=== PATIENT | male | born 1985 | race African-American/Black ===

== ENCOUNTER 2018-02-12 06:59 | Emergency (ER) | payer SELFPAY ==
[~2018-02-12] VITALS: Ht 170.2 cm; Wt 79.0 kg
[2018-02-12] MEDS ORDERED: BACITRACIN ZINC OINT UDPKT TOP ONE (08:30)
[2018-02-12] MEDS ORDERED: LIDOCAINE HCL/PF 1% 10 MG/ML 5ML VIAL IJ ONE (08:30)
[2018-02-12 10:28] VITALS: BP 117/71
== END 2018-02-12 10:30 | disposition home or self-care (01) ==
LOC: ER 07:16
DX: L03.011 Cellulitis of right finger (principal); F12.10 Cannabis abuse, uncomplicated
CPT/HCPCS: 10060; 99283; J3490; Z7610

== ENCOUNTER 2018-02-16 14:11 | Emergency (ER) | payer SELFPAY ==
[~2018-02-16] VITALS: Ht 167.6 cm; Wt 76.0 kg
[2018-02-16 14:14] VITALS: BP 118/72
== END 2018-02-16 15:39 | disposition home or self-care (01) ==
LOC: ER 14:11
DX: Z48.01 Encounter for change or removal of surgical wound dressing (principal); J45.909 Unspecified asthma, uncomplicated; F12.10 Cannabis abuse, uncomplicated
CPT/HCPCS: 99281

== ENCOUNTER 2018-12-07 00:03 | Emergency (ER) | payer MEDICAID ==
[~2018-12-07] VITALS: Ht 170.2 cm; Wt 80.0 kg
[2018-12-07] MEDS ORDERED: MAGNESIUM/ALUMINUM HYDROXIDE/SIMETHICONE 30ML UDC PO STA (03:02)
[2018-12-07] MEDS ORDERED: SODIUM CHLORIDE 0.9% 1,000 ML IV ONE (03:02)
[2018-12-07] MEDS ORDERED: ONDANSETRON HCL 4MG/2ML INJ IV STA (03:02)
[2018-12-07] MEDS ORDERED: FAMOTIDINE 20MG/2ML VIAL IV STA (03:02)
[2018-12-07 03:30] LABS: BASOPHILS % 0.3 % (0.0-2.0); EOSINOPHILS % 1.8 % (0.0-5.0); HEMATOCRIT. 39.5 % (42.0-52.0); HEMOGLOBIN. 12.9 g/dL (14.0-18.0); LYMPHOCYTES % 35.5 % (20.0-50.0); MEAN CORPUSCULAR HEMOGLOBIN 27.5 pg (28.0-32.0); MEAN CORPUSCULAR VOLUME 84.1 fL (80.0-94.0); MEAN PLATELET VOLUME 7.9 fl (7.4-10.4); MONOCYTES % 6.7 % (2.0-8.0); NEUTROPHILS % 55.7 % (40.0-76.0); PLATELET 242 x1000/uL (130-400)
[2018-12-07 03:36] LABS: CHLORIDE 104 mEq/L (98-107)
[2018-12-07 05:29] VITALS: BP 112/70
== END 2018-12-07 05:33 | disposition home or self-care (01) ==
LOC: ER 00:03
DX: T62.91XA Toxic effect of unspecified noxious substance eaten as food, accidental (unintentional), initial encounter (principal); J45.909 Unspecified asthma, uncomplicated; F12.10 Cannabis abuse, uncomplicated; R19.7 Diarrhea, unspecified; R11.10 Vomiting, unspecified; Y92.89 Other specified places as the place of occurrence of the external cause
CPT/HCPCS: 36415; 80053; 83690; 85025; 96374; 96375; 99283; J2405; J3490; J7030

== ENCOUNTER 2019-01-15 09:00 | Emergency (ER) | payer MEDICAID ==
[~2019-01-15] VITALS: Ht 167.6 cm; Wt 80.0 kg
[2019-01-15 09:45] VITALS: BP 154/76
[2019-01-15 10:37] LABS: CHLORIDE 107 mEq/L (98-107)
== END 2019-01-15 11:24 | disposition home or self-care (01) ==
LOC: ER 09:19
DX: B35.1 Tinea unguium (principal); B35.3 Tinea pedis
CPT/HCPCS: 36415; 99283

== ENCOUNTER 2019-03-27 12:59 | Emergency (ER) | payer MEDICAID ==
[~2019-03-27] VITALS: Ht 170.2 cm; Wt 82.0 kg
[2019-03-27 16:00] VITALS: BP 131/71
[2019-03-27] MEDS ORDERED: IBUPROFEN 600MG TABLET PO ONE (16:00)
== END 2019-03-27 16:16 | disposition home or self-care (01) ==
LOC: ER 13:11
DX: S90.861A Insect bite (nonvenomous), right foot, initial encounter (principal); L03.115 Cellulitis of right lower limb; F12.10 Cannabis abuse, uncomplicated; J45.909 Unspecified asthma, uncomplicated; W57.XXXA Bitten or stung by nonvenomous insect and other nonvenomous arthropods, initial encounter; Y93.89 Activity, other specified; Y92.89 Other specified places as the place of occurrence of the external cause; Y99.8 Other external cause status
CPT/HCPCS: 99283

== ENCOUNTER 2019-03-29 21:16 | Emergency (ER) | payer MEDICAID ==
[~2019-03-29] VITALS: Ht 170.2 cm; Wt 86.0 kg
[2019-03-29] MEDS ORDERED: SODIUM CHLORIDE 0.9% 1,000 ML IV ONE (22:16)
[2019-03-29] MEDS ORDERED: KETOROLAC 30MG/ML VIAL IV STA (22:16)
[2019-03-29] MEDS ORDERED: MORPHINE SULFATE 4 MG/ML CPJ (NOT FOR IM USE) IV STA (22:16)
[2019-03-29] MEDS ORDERED: ONDANSETRON HCL 4MG/2ML INJ IV STA (22:16)
[2019-03-29] MEDS ORDERED: VANCOMYCIN 1 G PREMIX 200 ML IV ONE (22:30)
[2019-03-29] MEDS ORDERED: BACITRACIN ZINC OINT UDPKT TOP ONE (22:30)
[2019-03-29] MEDS ORDERED: LIDOCAINE 1%/EPI 1:100,000 10 ML VIAL IJ ONE (22:30)
[2019-03-29] MEDS ORDERED: PIPERACILLIN/TAZ 3.375G PREMIX 50 ML IV ONE (22:30)
[2019-03-29 22:45] LABS: CHLORIDE 108 mEq/L (98-107)
[2019-03-29] MEDS ORDERED: BACITRACIN 15GM TUBE TOP NR (22:45)
[2019-03-29] MEDS ORDERED: LIDOCAINE HCL/EPINEPHRINE 1%-EPI 1:100,000 20 ML VIAL INFIL NR (22:45)
[2019-03-29 22:48] LABS: BASOPHILS % 0.3 % (0.0-2.0); EOSINOPHILS % 0.9 % (0.0-5.0); HEMATOCRIT. 39.6 % (42.0-52.0); LYMPHOCYTES % 25.4 % (20.0-50.0); MEAN CORPUSCULAR HEMOGLOBIN 27.4 pg (28.0-32.0); MEAN CORPUSCULAR VOLUME 83.5 fL (80.0-94.0); MEAN PLATELET VOLUME 8.1 fl (7.4-10.4); MONOCYTES % 8.7 % (2.0-8.0); NEUTROPHILS % 64.7 % (40.0-76.0); PLATELET 265 x1000/uL (130-400); RED BLOOD CELL COUNT 4.74 mill/uL (4.7-6.1); RED CELL DISTRIBUTION WIDTH 13.9 % (11.6-14.6)
[2019-03-29] MEDS ORDERED: MORPHINE SULFATE 4 MG/ML CPJ (NOT FOR IM USE) IV ONE (23:53)
[2019-03-30] MEDS ORDERED: HYDROCODONE/ACETAMINOPHEN 5/325MG TABLET PO ONE (00:15)
[2019-03-30] MEDS ORDERED: MORPHINE SULFATE 4 MG/ML CPJ (NOT FOR IM USE) IV ONE (00:15)
[2019-03-30] MEDS ORDERED: SULFAMETHOXAZOLE/TRIMETHOPRIM 800/160MG TABLET PO ONE (00:15)
[2019-03-30 01:07] VITALS: BP 130/75
== END 2019-03-30 01:14 | disposition home or self-care (01) ==
LOC: ER 21:16
DX: L02.611 Cutaneous abscess of right foot (principal); L03.115 Cellulitis of right lower limb; F17.210 Nicotine dependence, cigarettes, uncomplicated; Z71.6 Tobacco abuse counseling
CPT/HCPCS: 10060; 36415; 80053; 85025; 96365; 96367; 96375; 99283; 99406; A4217; J1885; J2270; J2405; J2543; J3370; J3490; J7030; Z7610

== ENCOUNTER 2019-03-31 12:10 | Emergency (ER) | payer MEDICAID ==
[~2019-03-31] VITALS: Ht 170.2 cm; Wt 82.0 kg
[2019-03-31 12:22] VITALS: BP 131/76
== END 2019-03-31 13:47 | disposition home or self-care (01) ==
LOC: ER 12:10
DX: Z48.00 Encounter for change or removal of nonsurgical wound dressing (principal)
CPT/HCPCS: 99282

== ENCOUNTER 2019-04-05 03:35 | Emergency (ER) | payer MEDICAID ==
[~2019-04-05] VITALS: Ht 170.2 cm; Wt 82.0 kg
[2019-04-05] MEDS ORDERED: FAMOTIDINE 20MG/2ML VIAL IV ONE (05:30)
[2019-04-05] MEDS ORDERED: ONDANSETRON HCL 4MG/2ML INJ IV ONE (05:30)
[2019-04-05] MEDS ORDERED: SODIUM CHLORIDE 0.9% 1,000 ML IV ONE ×2 (05:30→06:45)
[2019-04-05 05:34] LABS: BASOPHILS % 0.1 % (0.0-2.0); EOSINOPHILS % 0.2 % (0.0-5.0); HEMATOCRIT. 40.3 % (42.0-52.0); LYMPHOCYTES % 9.2 % (20.0-50.0); MEAN CORPUSCULAR HEMOGLOBIN 26.8 pg (28.0-32.0); MEAN CORPUSCULAR VOLUME 83.2 fL (80.0-94.0); MEAN PLATELET VOLUME 7.9 fl (7.4-10.4); MONOCYTES % 5.5 % (2.0-8.0); PLATELET 290 x1000/uL (130-400); RED BLOOD CELL COUNT 4.84 mill/uL (4.7-6.1); RED CELL DISTRIBUTION WIDTH 13.7 % (11.6-14.6)
[2019-04-05 05:37] LABS: CHLORIDE 103 mEq/L (98-107); PROTHROMBIN TIME 10.8 sec (9.6-11.0)
[2019-04-05 07:50] LABS: CLARITY URINE CLOUDY (CLEAR); COLOR URINE YELLOW (YELLOW); KETONES URINE NEGATIVE (NEGATIVE); LEUKOCYTE ESTERASE URINE NEGATIVE (NEGATIVE); NITRITE URINE NEGATIVE (NEGATIVE); OCCULT BLOOD URINE TRACE (NEGATIVE); PH URINE 7.5 (4.5-8.0); PROTEIN URINE NEGATIVE (NEGATIVE); SPECIFIC GRAVITY URINE 1.014 (1.005-1.030)
[2019-04-05] MEDS ORDERED: IOHEXOL-300 100 ML BOTTLE ONE (09:11)
[2019-04-05 11:51] VITALS: BP 133/72
== END 2019-04-05 11:51 | disposition home or self-care (01) ==
LOC: ER 03:35
DX: R10.9 Unspecified abdominal pain (principal); R11.2 Nausea with vomiting, unspecified; F12.10 Cannabis abuse, uncomplicated
CPT/HCPCS: 36415; 74177; 80053; 81003; 83690; 85025; 85610; 87086; 96361; 96374; 96375; 99284; J2405; J3490; J7030; Q9967; Z7610

== ENCOUNTER 2019-07-23 23:25 | Emergency (ER) | payer SELFPAY ==
[~2019-07-23] VITALS: Ht 170.2 cm; Wt 82.0 kg
[2019-07-24 03:00] VITALS: BP 115/70
== END 2019-07-24 04:09 | disposition left against medical advice (07) ==
LOC: ER 23:25
DX: M79.671 Pain in right foot (principal); Z53.21 Procedure and treatment not carried out due to patient leaving prior to being seen by health care provider

== ENCOUNTER 2019-07-24 07:32 | Emergency (ER) | payer SELFPAY ==
[~2019-07-24] VITALS: Ht 170.2 cm; Wt 82.0 kg
[2019-07-24 07:38] VITALS: BP 125/69
[2019-07-24] MEDS ORDERED: ACETAMINOPHEN 325MG TABLET PO ONE (08:15)
== END 2019-07-24 09:00 | disposition home or self-care (01) ==
LOC: ER 07:32
DX: S90.464A Insect bite (nonvenomous), right lesser toe(s), initial encounter (principal); M79.674 Pain in right toe(s); W57.XXXA Bitten or stung by nonvenomous insect and other nonvenomous arthropods, initial encounter; Y93.89 Activity, other specified; Y92.89 Other specified places as the place of occurrence of the external cause; Y99.8 Other external cause status; F12.10 Cannabis abuse, uncomplicated
CPT/HCPCS: 99283

== ENCOUNTER 2020-08-30 14:34 | Emergency (ER) | payer MEDICAID ==
[~2020-08-30] VITALS: Ht 170.2 cm; Wt 87.0 kg
[2020-08-30] MEDS ORDERED: ONDANSETRON HCL 4MG/2ML INJ IV STA (15:20)
[2020-08-30] MEDS ORDERED: KETOROLAC 30MG/ML VIAL IV STA (15:20)
[2020-08-30] MEDS ORDERED: SODIUM CHLORIDE 0.9% 1,000 ML IV ONE (15:30)
[2020-08-30 15:44] LABS: BASOPHILS % 0.2 % (0.0-2.0); EOSINOPHILS % 0.7 % (0.0-5.0); HEMATOCRIT. 42.7 % (42.0-52.0); HEMOGLOBIN. 13.8 g/dL (14.0-18.0); LYMPHOCYTES % 17.3 % (20.0-50.0); MEAN CORPUSCULAR HEMOGLOBIN 27.3 pg (28.0-32.0); MEAN CORPUSCULAR VOLUME 84.1 fL (80.0-94.0); MEAN PLATELET VOLUME 8.3 fl (7.4-10.4); MONOCYTES % 6.1 % (2.0-8.0); NEUTROPHILS % 75.7 % (40.0-76.0); PLATELET 246 x1000/uL (130-400); RED BLOOD CELL COUNT 5.07 mill/uL (4.7-6.1)
[2020-08-30 15:51] LABS: CHLORIDE 107 mEq/L (98-107)
[2020-08-30 17:59] LABS: CLARITY URINE CLEAR (CLEAR); COLOR URINE YELLOW (YELLOW); KETONES URINE NEGATIVE (NEGATIVE); LEUKOCYTE ESTERASE URINE NEGATIVE (NEGATIVE); NITRITE URINE NEGATIVE (NEGATIVE); OCCULT BLOOD URINE 1+ (NEGATIVE); PROTEIN URINE NEGATIVE (NEGATIVE); SPECIFIC GRAVITY URINE 1.024 (1.005-1.030); UROBILINOGEN URINE 0.2 E.U./dL (0.2-1.0)
[2020-08-30] MEDS ORDERED: ONDA4TAB11 PO (18:05)
[2020-08-30] MEDS ORDERED: FAMO-262 PO (18:05)
[2020-08-30 18:42] VITALS: BP 140/80
[2020-08-30] MEDS ORDERED: IOHEXOL-350 100 ML BOTTLE ONE (19:34)
== END 2020-08-30 18:44 | disposition home or self-care (01) ==
LOC: ER 14:34
DX: K52.9 Noninfective gastroenteritis and colitis, unspecified (principal); F12.10 Cannabis abuse, uncomplicated
CPT/HCPCS: 36415; 74177; 80053; 81003; 83690; 85025; 93005; 96361; 96374; 96375; 99285; J1885; J2405; J7030; Q9967

== ENCOUNTER 2021-08-03 13:54 | Emergency (ER) | payer MEDICAID ==
[~2021-08-03] VITALS: Ht 170.2 cm; Wt 81.0 kg
[~2021-08-03 13:54] MED LIST: FAMO-262 PO; ONDA4TAB11 PO
[2021-08-03 14:00] VITALS: BP 140/88
== END 2021-08-03 15:31 | disposition home or self-care (01) ==
LOC: ER 14:04
DX: Z04.89 Encounter for examination and observation for other specified reasons (principal); F12.10 Cannabis abuse, uncomplicated
CPT/HCPCS: 99281

== ENCOUNTER 2021-09-15 23:48 | Emergency (ER) | payer MEDICAID ==
[~2021-09-15] VITALS: Ht 170.2 cm; Wt 86.0 kg
[2021-09-16] MEDS ORDERED: KETOROLAC 30MG/ML VIAL IM ONE (01:00)
[2021-09-16] MEDS ORDERED: CYCLOBENZAPRINE 10MG TABLET PO ONE (01:00)
[2021-09-16 01:27] VITALS: BP 107/72
[2021-09-16] MEDS ORDERED: NAPR-1176 MT (02:40)
[2021-09-16] MEDS ORDERED: CYCL10TA7 MT (02:40)
== END 2021-09-16 03:04 | disposition home or self-care (01) ==
LOC: ER 23:48
DX: S29.012A Strain of muscle and tendon of back wall of thorax, initial encounter (principal); X50.1XXA Overexertion from prolonged static or awkward postures, initial encounter; Y93.67 Activity, basketball; Y92.310 Basketball court as the place of occurrence of the external cause
CPT/HCPCS: 71045; 96372; 99283; J1885

== ENCOUNTER 2021-10-27 18:17 | Emergency (ER) | payer MEDICAID, OTHER ==
[~2021-10-27] VITALS: Ht 170.2 cm; Wt 81.0 kg
[~2021-10-27 18:17] MED LIST changes: +CYCL10TA7 MT; +NAPR-1176 MT
[2021-10-27 18:18] VITALS: BP 122/77
== END 2021-10-27 20:19 | disposition home or self-care (01) ==
LOC: ER 18:17
DX: Z53.21 Procedure and treatment not carried out due to patient leaving prior to being seen by health care provider (principal)
CPT/HCPCS: 93005; 99283

== ENCOUNTER 2021-11-12 16:00 | Emergency (ER) | payer OTHER ==
[~2021-11-12] VITALS: Ht 167.6 cm; Wt 84.0 kg
[2021-11-12 16:09] VITALS: BP 122/77
== END 2021-11-12 20:00 | disposition left against medical advice (07) ==
LOC: ER 16:00
DX: M54.6 Pain in thoracic spine (principal)
CPT/HCPCS: 99281

== ENCOUNTER 2022-02-22 11:52 | Emergency (ER) | payer OTHER ==
[~2022-02-22] VITALS: Ht 170.2 cm; Wt 82.0 kg
[~2022-02-22 11:52] MED LIST changes: +CYCL10TA21 MT; -CYCL10TA7 MT
[2022-02-22 11:55] VITALS: BP 124/68
[2022-02-22] MEDS ORDERED: IBUP-2029 MT (13:22)
[2022-02-22] MEDS ORDERED: CYCL10TA21 MT (13:22)
== END 2022-02-22 13:52 | disposition home or self-care (01) ==
LOC: ER 13:04
DX: M54.50 Low back pain, unspecified (principal); F12.10 Cannabis abuse, uncomplicated; Z86.16 Personal history of COVID-19
CPT/HCPCS: 99283

== ENCOUNTER 2024-07-29 20:07 | Emergency (ER) | payer OTHER ==
[~2024-07-29] VITALS: Ht 170.2 cm; Wt 67.0 kg
[~2024-07-29 20:07] MED LIST changes: +IBUP-2029 MT; +ONDA-239 PO; -ONDA4TAB11 PO
[2024-07-29 20:11] VITALS: O2SAT 100
[2024-07-29 20:19] VITALS: BP 113/54; PULSE 78; RESP 16; TEMP 36.7; O2SAT 99
== END 2024-07-29 21:12 | disposition left against medical advice (07) ==
LOC: ER 20:07
DX: R05.9 Cough, unspecified (principal); Z53.21 Procedure and treatment not carried out due to patient leaving prior to being seen by health care provider

== ENCOUNTER 2024-11-26 06:40 | Emergency (ER) | payer MEDICAID, OTHER ==
[~2024-11-26] VITALS: Ht 170.2 cm; Wt 86.0 kg
[2024-11-26 06:44] VITALS: O2SAT 99
[2024-11-26] MEDS ORDERED: MAGNESIUM/ALUMINUM HYDROXIDE/SIMETHICONE 30ML UDC PO STA (07:10)
[2024-11-26] MEDS ORDERED: DICYCLOMINE 10 MG/5 ML ORAL SYR PO STA (07:10)
[2024-11-26 07:11] LABS: BASOPHILS % 0.5 % (0.0-2.0); EOSINOPHILS % 1.5 % (0.0-5.0); HEMATOCRIT. 41.5 % (42.0-52.0); HEMOGLOBIN. 13.7 g/dL (14.0-18.0); LYMPHOCYTES % 17.7 % (20.0-50.0); MEAN CORPUSCULAR HEMOGLOBIN 27.2 pg (28.0-32.0); MEAN CORPUSCULAR VOLUME 82.3 fL (80.0-94.0); NEUTROPHILS % 74.3 % (40.0-76.0); PLATELET 266 x1000/uL (130-400); RED BLOOD CELL COUNT 5.05 mill/uL (4.7-6.1); RED CELL DISTRIBUTION WIDTH 13.7 % (11.6-14.6); WHITE BLOOD COUNT 11.4 x1000/uL (4.5-11.0)
[2024-11-26 07:19] LABS: CHLORIDE 105 mEq/L (98-107); POTASSIUM 3.8 mEq/L (3.5-5.1); SODIUM 138 mEq/L (136-145)
[2024-11-26 07:20] LABS: CARBON DIOXIDE 26 mEq/L (21-32)
[2024-11-26 07:21] LABS: CALCIUM 9.2 mg/dL (8.7-10.4)
[2024-11-26 07:25] LABS: GLUCOSE 105 mg/dL (70-105)
[2024-11-26 07:26] LABS: UREA NITROGEN BLOOD 12 mg/dL (9-23)
[2024-11-26 07:27] LABS: ALANINE AMINOTRANSFERASE 19 IU/L (10-49); ALBUMIN 4.3 g/dL (3.2-4.8); ASPARTATE AMINOTRANSFERASE 26 IU/L (<34)
[2024-11-26 07:28] LABS: BILIRUBIN DIRECT 0.1 mg/dL (<=3.0); BILIRUBIN TOTAL 0.4 mg/dL (0.1-1.0)
[2024-11-26 07:45] VITALS: TEMP 36.9
[2024-11-26 08:11] LABS: CLARITY URINE CLEAR (CLEAR); COLOR URINE YELLOW (YELLOW); GLUCOSE URINE NEGATIVE (NEGATIVE); KETONES URINE NEGATIVE (NEGATIVE); LEUKOCYTE ESTERASE URINE NEGATIVE (NEGATIVE); NITRITE URINE NEGATIVE (NEGATIVE); OCCULT BLOOD URINE 1+ (NEGATIVE); PH URINE 5.5 (4.5-8.0); PROTEIN URINE NEGATIVE (NEGATIVE); SPECIFIC GRAVITY URINE 1.018 (1.005-1.030); UROBILINOGEN URINE 0.2 E.U./dL (0.2-1.0)
[2024-11-26 08:49] LABS: BACTERIA URINE TRACE; MUCUS URINE TRACE /lpf (NONE/TRACE); SQUAMOUS EPITHELIAL CELL URINE RARE /lpf (RARE/1+)
[2024-11-26 08:50] LABS: RBC URINE 0-2 /hpf (0-2)
[2024-11-26 08:51] LABS: WBC URINE 0-2 /hpf (0-2)
[2024-11-26] MEDS: ACETAMINOPHEN 325MG TABLET PO STA (09:00)
[2024-11-26] MEDS: ONDANSETRON 4MG ODT PO STA (09:11)
[2024-11-26] MEDS: VISCOUS LIDOCAINE 2% 15 ML UDC PO SCH (09:30)
[2024-11-26 09:36] VITALS: BP 125/71; PULSE 67; RESP 16; O2SAT 98
[2024-11-26 09:44] VITALS: TEMP 98.4
[2024-11-26] MEDS: ONDANSETRON 4MG ODT PO NR (09:44)
[2024-11-26] MEDS: ACETAMINOPHEN 325MG TABLET PO SCH (09:44)
[2024-11-26] MEDS: VISCOUS LIDOCAINE 2% 15 ML UDC PO STA (10:01)
[2024-11-26] MEDS: DICYCLOMINE HCL 10MG CAPSULE PO NR (10:01)
[2024-11-26] MEDS: MAGNESIUM/ALUMINUM HYDROXIDE/SIMETHICONE 30ML UDC PO NR (10:01)
== END 2024-11-26 10:06 | disposition home or self-care (01) ==
LOC: ER 06:40
DX: K52.9 Noninfective gastroenteritis and colitis, unspecified (principal); F12.90 Cannabis use, unspecified, uncomplicated; Z79.899 Other long term (current) drug therapy; Z79.1 Long term (current) use of non-steroidal anti-inflammatories (NSAID)
CPT/HCPCS: 99284; 80076; 80048; 81003; 83690; 85025; 36415; Q0162